=== PATIENT | female | born 1985 | race Caucasian/White ===

== ENCOUNTER → 2017-01-23 | Outpatient (CLI) | payer OTHER | LOC: OD 10:22 | PROVIDERS: ATTEND Nurse Practitioner | DX: Z32.02 Encounter for pregnancy test, result negative (principal) | CPT/HCPCS: 36415; 84702 ==

== ENCOUNTER → 2017-07-24 | Outpatient (CLI) | payer OTHER ==
[2017-07-24 07:56] LABS: ABSOLUTE BASOPHILS # (AUTO) 0.1 10^3/uL (0.0-0.2); ABSOLUTE EOSINOPHILS # (AUTO) 0.3 10^3/uL (0.0-0.6); ABSOLUTE LYMPHOCYTES (AUTO) 1.7 10^3/uL (0.5-4.7); ABSOLUTE MONOCYTES (AUTO) 0.5 10^3/uL (0.1-1.4); ABSOLUTE NEUT (AUTO) 4.9 10^3/uL (1.7-8.2); EOSINOPHILS % (AUTO) 4.1 % (0-6); HEMATOCRIT 38.4 % (36.0-47.0); HEMOGLOBIN 12.7 g/dL (12.0-15.5); HGB HCT DIFFERENCE -0.3; LYMPHOCYTES % (AUTO) 22.5 % (13-45); MEAN CORPUSCULAR HEMOGLOBIN 28.4 pg (27.0-33.4); MEAN CORPUSCULAR HGB CONC 33.2 g/dL (32.0-36.0); MEAN CORPUSCULAR VOLUME 86 fl (80-97); MONOCYTES % (AUTO) 6.3 % (3-13); RED BLOOD COUNT 4.48 10^6/uL (3.72-5.28); RED CELL DISTRIBUTION WIDTH 13.2 % (11.5-14.0); SEGMENTED NEUTROPHILS % (AUTO) 66.1 % (42-78); WHITE BLOOD COUNT 7.5 10^3/uL (4.0-10.5)
[2017-07-24 08:07] LABS: ALANINE AMINOTRANSFERASE 33 U/L (9-52); ALBUMIN 4.1 g/dL (3.5-5.0); ALKALINE PHOSPHATASE 96 U/L (38-126); ANION GAP 8 (5-19); ASPARTATE AMINO TRANSFERASE 24 U/L (14-36); BILIRUBIN,DIRECT 0.3 mg/dL (0.0-0.4); BILIRUBIN,TOTAL 0.3 mg/dL (0.2-1.3); BLOOD UREA NITROGEN 11 mg/dL (7-20); CALCIUM 9.7 mg/dL (8.4-10.2); CARBON DIOXIDE 28 mmol/L (22-30); CHLORIDE 105 mmol/L (98-107); CHOLESTEROL 257.08 mg/dL (0-200); CREATININE RESULT 0.58 mg/dL (0.52-1.25); Direct HDL 91 mg/dL (>40); GLUCOSE 96 mg/dL (75-110); POTASSIUM 4.6 mmol/L (3.6-5.0); SODIUM 140.6 mmol/L (137-145); TOTAL PROTEIN 7.1 g/dL (6.3-8.2); TRIGLYCERIDES 209 mg/dL (<150)
[2017-07-24 08:18] LABS: DIRECT LDL 149 mg/dL (<100)
[2017-07-24 08:24] LABS: VLDL CHOLESTEROL 41.8 mg/dL (10-31)
[2017-07-24 08:37] LABS: THYROID STIMULATING HORMONE 2.48 uIU/mL (0.47-4.68)
== END ==
LOC: OD 07:18
PROVIDERS: ATTEND Nurse Practitioner Psychiatric/Mental Health
DX: F33.0 Major depressive disorder, recurrent, mild (principal); Z79.899 Other long term (current) drug therapy
CPT/HCPCS: 36415; 80053; 80061; 84439; 84443; 85025

== ENCOUNTER 2017-10-30 12:25 | Emergency (ER) | payer OTHER ==
--- NOTE | 2017-10-30 13:03 | ER Document Report ---
ED Medical Screen (RME) - General TRAVEL OUTSIDE OF THE U.S. IN LAST 30 DAYS: No <DHARMESH OLIVIA - Last Filed: 10/30/17 13:02> <HAMZAH POWELL - Last Filed: 10/30/17 15:33> - General Chief Complaint: Lower Abdominal Pain Stated Complaint: URINE CONCERN Time Seen by Provider: 10/30/17 12:57 Notes: 32-year-old female with acute onset this morning of right pelvic adnexal pain. Was seen at an urgent care where she had a negative urine and negative hCG. Brief exam shows abdomen obese, soft, point tender in the right adnexal region. No CVA percussion tenderness. Abdomen is soft with active bowel sounds. I have greeted and performed a rapid initial assessment of this patient. A comprehensive ED assessment and evaluation of the patient, analysis of test results and completion of the medical decision making process will be conducted by additional ED providers. (DHARMESH OLIVIA) - Related Data Allergies/Adverse Reactions: No Known Allergies Allergy (Verified 10/30/17 12:26) Past Medical History - Social History Frequency of alcohol use: Occasional Drug Abuse: None Endocrine Medical History: Denies: Hx Hyperthyroidism, Hx Hypothyroidism Renal/ Medical History: Denies: Hx Peritoneal Dialysis Psychiatric Medical History: Reports: Hx Depression Denies: Hx Bipolar Disorder, Hx Post Traumatic Stress Disorder, Hx Schizophrenia <DHARMESH OLIVIA - Last Filed: 10/30/17 13:02> - Vital signs Vitals: Temp Pulse Resp BP Pulse Ox 98.7 F 93 16 133/75 H 96 10/30/17 12:31 10/30/17 12:31 10/30/17 12:31 10/30/17 12:31 10/30/17 12:31 Course - Laboratory Result Diagrams: 10/30/17 13:28 <HAMZAH POWELL - Last Filed: 10/30/17 15:33> - Vital Signs Vital signs: Temp Pulse Resp BP Pulse Ox 98.5 F 93 16 133/78 H 95 10/30/17 15:27 10/30/17 15:27 10/30/17 15:27 10/30/17 15:27 10/30/17 15:27 - Laboratory Laboratory results interpreted by me: 10/30/17 13:28 RDW 14.3 H Doctor's Discharge <DHARMESH OLIVIA - Last Filed: 10/30/17 13:02> <HAMZAH POWELL - Last Filed: 10/30/17 15:33> - Discharge Clinical Impression: Abdominal pain Qualifiers: Abdominal location: periumbilical Qualified Code(s): R10.33 - Periumbilical pain Condition: Good Disposition: HOME, SELF-CARE Instructions: Abdominal Pain ([facility]) Additional Instructions: See your primary care doctor in 12-24 hours Prescriptions: Ondansetron [Zofran Odt 4 mg Tablet] 1 - 2 tab PO Q4H PRN #15 tab.rapdis PRN Reason: For Nausea/Vomiting Forms: Return to School, Return to Work
[2017-10-30 14:01] LABS: APPEARANCE,URINE CLEAR; BILIRUBIN,URINE NEGATIVE (NEGATIVE); COLOR,URINE STRAW; GLUCOSE, URINE NEGATIVE (NEGATIVE); KETONES,URINE NEGATIVE (NEGATIVE); LEUKOCYTE ESTERASE,URINE NEGATIVE (NEGATIVE); NITRITE,URINE NEGATIVE (NEGATIVE); PROTEIN,URINE NEGATIVE (NEGATIVE); URINE SPECIFIC GRAVITY 1.004; UROBILINOGEN,URINE NEGATIVE mg/dL (<2.0)
[2017-10-30 14:24] LABS: ABSOLUTE BASOPHILS # (AUTO) 0.1 10^3/uL (0.0-0.2); ABSOLUTE EOSINOPHILS # (AUTO) 0.2 10^3/uL (0.0-0.6); ABSOLUTE LYMPHOCYTES (AUTO) 2.2 10^3/uL (0.5-4.7); ABSOLUTE MONOCYTES (AUTO) 0.6 10^3/uL (0.1-1.4); ABSOLUTE NEUT (AUTO) 7.3 10^3/uL (1.7-8.2); BASOPHILS % (AUTO) 0.7 % (0-2); EOSINOPHILS % (AUTO) 1.9 % (0-6); HEMATOCRIT 38.4 % (36.0-47.0); LYMPHOCYTES % (AUTO) 21.5 % (13-45); MEAN CORPUSCULAR HEMOGLOBIN 28.4 pg (27.0-33.4); MEAN CORPUSCULAR HGB CONC 33.9 g/dL (32.0-36.0); MEAN CORPUSCULAR VOLUME 84 fl (80-97); MONOCYTES % (AUTO) 5.8 % (3-13); PLATELET COUNT 268 10^3/uL (150-450); RED BLOOD COUNT 4.58 10^6/uL (3.72-5.28); RED CELL DISTRIBUTION WIDTH 14.3 % (11.5-14.0); SEGMENTED NEUTROPHILS % (AUTO) 70.1 % (42-78); TOTAL CELLS COUNTED % (AUTO) 100 %; WHITE BLOOD COUNT 10.4 10^3/uL (4.0-10.5)
--- NOTE | 2017-10-30 14:36 | RADIOLOGY REPORT (SQ) ---
EXAM DESCRIPTION: U/S NON-OB PELVIS TV W/O DOP COMPLETED DATE/TIME: 10/30/2017 2:25 pm REASON FOR STUDY: Acute onset, R pelvic/adnexal pain COMPARISON: None. TECHNIQUE: Dynamic and static grayscale images acquired of the pelvis via transvaginal approach and recorded on PACS. Additional selected color Doppler and spectral images recorded. LIMITATIONS: None. FINDINGS: UTERUS: Contour normal. No mass. Uterus is 7 x 4 x 4 cm in size ENDOMETRIAL STRIPE: No focal or generalized thickening. No masses. Endometrium 4 mm in thickness. CERVIX: No nabothian cysts. RIGHT OVARY: No abnormal masses. Right ovary 3.5 x 2.6 x 1.7 cm in size RIGHT OVARY DOPPLER: Normal arterial vascular flow without evidence for torsion. LEFT OVARY: No abnormal masses. Left ovary 3.5 x 2.1 x 1.1 cm in size LEFT OVARY DOPPLER: Normal arterial vascular flow without evidence for torsion. FREE FLUID: Trace cul-de-sac fluid OTHER: No other significant finding. IMPRESSION: Trace cul-de-sac fluid. Otherwise unremarkable study. TECHNICAL DOCUMENTATION: JOB ID: [id number]- All Rights Reserved Reading location - IP/workstation name: [email or web address]
--- NOTE | 2017-10-30 15:09 | ER Document Report ---
ED General - General Chief Complaint: Lower Abdominal Pain Stated Complaint: URINE CONCERN Time Seen by Provider: 10/30/17 12:57 TRAVEL OUTSIDE OF THE [place] IN LAST 30 DAYS: No - HPI Notes: Note patient was initially seen by physician in triage ordered labs and ultrasound. This is a 32-year-old female who describes midline periumbilical supra pubic pain over the last day, gradual onset. Nonradiating. Nausea but no vomiting. Achy, crampy. No fever. No other modifying factors, no other associated symptoms, no other provocative or palliative factors. - Related Data Allergies/Adverse Reactions: No Known Allergies Allergy (Verified 10/30/17 12:26) Past Medical History - Social History Smoking Status: Never Smoker Frequency of alcohol use: Occasional Drug Abuse: None Family History: Reviewed & Not Pertinent Patient has suicidal ideation: No Patient has homicidal ideation: No - Medical History Medical History: Other - Denies except for history of depression Endocrine Medical History: Denies: Hx Hyperthyroidism, Hx Hypothyroidism Renal/ Medical History: Denies: Hx Peritoneal Dialysis Psychiatric Medical History: Reports: Hx Depression Denies: Hx Bipolar Disorder, Hx Post Traumatic Stress Disorder, Hx Schizophrenia Review of Systems - Review of Systems Notes: Review of systems as in history of present illness otherwise negative Physical Exam - Vital signs Vitals: Temp Pulse Resp BP Pulse Ox 98.7 F 93 16 133/75 H 96 10/30/17 12:31 10/30/17 12:31 10/30/17 12:31 10/30/17 12:31 10/30/17 12:31 - Notes Notes: General: Well developed . HEENT: Normocephalic, atraumatic. Pupils equal round reactive to light. No JVD. Chest: No trauma. Respiratory: Good air exchange, normal excursion. Cardiac: Regular rhythm. No murmurs or gallops. Abdomen: Soft, benign. Nondistended, distracted examination grossly nontender. No guarding, rigidity or rebound Back: No asymmetry or gross abnormality. Motor: Grossly normal power and tone. Neurologic: Alert, nonfocal. Cranial nerves II-12 are intact. Sensation intact. Vascular: Well perfused. Normal peripheral pulses. Skin: No petechiae or purpura. Course - Vital Signs Vital signs: Temp Pulse Resp BP Pulse Ox 98.7 F 93 16 133/75 H 96 10/30/17 12:31 10/30/17 12:31 10/30/17 12:31 10/30/17 12:31 10/30/17 12:31 10/30/17 15:17 Well-appearing female with a benign abdominal examination. She received antibiotics prior to my evaluation. She states she feels much better pain is improved. Review of her labs show unremarkable CBC, negative urinalysis and urine test. Ultrasound was obtained is also unremarkable. On serial examination she has a benign abdomen. My suspicion for appendicitis is low, especially in the absence of fever, leukocytosis, right lower quadrant pain and and considering her significant improvement in pain. She discharged home to follow-up in 1224 hrs. for recheck, return if worsening. - Laboratory Result Diagrams: 10/30/17 13:28 Laboratory results interpreted by me: 10/30/17 13:28 RDW 14.3 H Discharge - Discharge Clinical Impression: Abdominal pain Qualifiers: Abdominal location: periumbilical Qualified Code(s): R10.33 - Periumbilical pain Condition: Good Disposition: HOME, SELF-CARE Instructions: Abdominal Pain ([facility]) Additional Instructions: See your primary care doctor in 12-24 hours Prescriptions: Ondansetron [Zofran Odt 4 mg Tablet] 1 - 2 tab PO Q4H PRN #15 tab.rapdis PRN Reason: For Nausea/Vomiting
[2017-10-30 15:31] VITALS: BP 133/78
== END 2017-10-30 15:30 | disposition home or self-care (01) ==
LOC: ER 12:25
DX: R10.33 Periumbilical pain (principal); R11.0 Nausea
CPT/HCPCS: 36415; 76830; 81001; 81025; 85025; 99284

== ENCOUNTER → 2017-12-14 | Outpatient (CLI) | payer OTHER ==
--- NOTE | 2017-12-14 10:07 | RADIOLOGY REPORT (SQ) ---
EXAM DESCRIPTION: CT CHEST WITH; CT ABD/PELVIS WITH IV ONLY COMPLETED DATE/TIME: 12/14/2017 9:25 am REASON FOR STUDY: BREAST CA (C50.812) C50.812 MALIGNANT NEOPLASM OF OVRLP SITES OF LEFT FEMALE [place] COMPARISON: Pelvic ultrasound 10/30/2017 CONTRAST TYPE AND DOSE: contrast/concentration: Isovue 370.00 mg/ml; Total Contrast Delivered: 100.0 ml; Total Saline Delivered: 72.0 ml RENAL FUNCTION: Creatinine 0.6 TECHNIQUE: CT scan of the chest performed using helical scanning technique with dynamic intravenous contrast injection. Images reviewed with lung, soft tissue and bone windows. Reconstructed coronal a nd sagittal MPR images reviewed. All images stored on PACS. CT scan of the abdomen and pelvis performed with intravenous and without oral contrastusing helical s lindsay technique with dynamic intravenous contrast injection. Images reviewed with lung, soft tissu e and bone windows. Reconstructed coronal and sagittal MPR images reviewed. Delayed images for eval uation of the urinary system also acquired and evaluated. All images stored on PACS. All CT scanners at this facility use dose modulation, iterative reconstruction, and/or weight based d osing when appropriate to reduce radiation dose to as low as reasonably achievable (ALARA). [facility]: Dose Right [facility]: CareDose [facility]: Dose Right [facility]: Teradose 4D [facility]: [employer] RADIATION DOSE: CT Rad equipment meets quality standard of care and radiation dose reduction techniq ues were employed. CTDIvol: 10.4 - 16.5 mGy. DLP: 3169 mGy-cm. . LIMITATIONS: None. FINDINGS: CHEST: LUNGS AND PLEURA: No opacities, nodules, masses. No pneumothorax. No effusions. HILAR AND MEDIASTINAL STRUCTURES: No identified masses or abnormal nodes. HEART AND VASCULAR STRUCTURES: No aneurysm or dissection. No central pulmonary emboli. No pericardi al effusion. HARDWARE: None. THYROID AND OTHER SOFT TISSUES: Thyroid unremarkable. 3 cm left breast mass upper outer quadrant, wi th adjacent biopsy clip. Left axilla 3 x 1 cm lymph node image 18. BONES: No significant finding. OTHER: No other significant finding. ABDOMEN AND PELVIS: LIVER: Normal size. No masses. No dilated ducts. Fatty liver with focal sparing at the gallbladder fossa SPLEEN: Normal size. No focal lesions. PANCREAS: No masses. No significant calcifications. No adjacent inflammation or peripancreatic fluid collections. Pancreatic duct not dilated. GALLBLADDER: No identified stones by CT criteria. No inflammatory changes to suggest cholecystitis. ADRENAL GLANDS: No significant masses or asymmetry. RIGHT KIDNEY AND URETER: No solid masses. No significant calcification. No hydronephrosis or hydroure ter. LEFT KIDNEY AND URETER: No solid masses. No significant calcification. No hydronephrosis or hydrouret er. AORTA AND VESSELS: No aneurysm. No dissection. Renal arteries, SMA, celiac without stenosis. RETROPERITONEUM: No retroperitoneal adenopathy, hemorrhage or masses. BOWEL AND PERITONEAL CAVITY: No masses or inflammatory changes. No free fluid or peritoneal masses. APPENDIX: Normal. ABDOMINAL WALL: No masses. No hernias. PELVIS: No mass or free fluid. Normal bladder. BONES: No significant or acute findings. OTHER: No other significant finding. IMPRESSION: 3 cm left upper outer quadrant breast mass with adjacent biopsy clip. Enlarged left axilla lymph node. Otherwise unremarkable CT of the chest abdomen and pelvis TECHNICAL DOCUMENTATION: JOB ID: [id number] Quality ID # 436: Final reports with documentation of one or more dose reduction techniques (e.g., Au tomated exposure control, adjustment of the mA and/or kV according to patient size, use of iterative reconstruction technique) 2010 [employer]- All Rights Reserved Reading location - IP/workstation name: [email or web address]
--- NOTE | 2017-12-14 12:37 | RADIOLOGY REPORT (SQ) ---
EXAM DESCRIPTION: NM WHOLE BODY BONE SCAN COMPLETED DATE/TIME: 12/14/2017 12:08 pm REASON FOR STUDY: BREAST CA (C50.812) C50.812 MALIGNANT NEOPLASM OF OVRLP SITES OF LEFT FEMALE [place] COMPARISON: CT chest abdomen pelvis 12/14/2016 RADIONUCLIDE AND DOSE: 20.9 millicuries Tc99m MDP. The route of agent administration: Intravenous. ADDITIONAL DRUGS AND DOSES: None. TECHNIQUE: Routine delayed images at 3 hours post radionuclide injection acquired of the bony skelet on including anterior and posterior whole-body projections and additional focused images as needed. LIMITATIONS: None. FINDINGS: BONES: Normal visualization without areas of photopenia or increased bony uptake of radiop harmaceutical. KIDNEYS: Symmetric excretion without obstruction. OTHER: No other significant finding. IMPRESSION: NORMAL BONE SCAN. COMMENT: Quality measure 147: Current bone scan is compared with any available plain radiographs, p rior bone scans, and CT/MRI. TECHNICAL DOCUMENTATION: JOB ID: [id number] [employer]- All Rights Reserved Reading location - IP/workstation name: [email or web address]
== END ==
LOC: RAD 08:20
PROVIDERS: ATTEND Internal Medicine Hematology & Oncology
DX: C50.812 Malignant neoplasm of overlapping sites of left female breast (principal)
CPT/HCPCS: 78306; 71260; 74177; A9561; Q9969

== ENCOUNTER 2017-12-27 08:43 | Day surgery (SDC) | payer OTHER ==
[~2017-12-27 08:43] MED LIST: ACETAMINOPHEN 325 MG TABLET PO PRN; CEFAZOLIN 2 GM/D5W RTU 2 GM/50 ML RTUPB IV PRN
[2017-12-27] MEDS ORDERED: BUPIVACAINE HCL 0.25 % INJ/PF (2.5 MG/1 ML) 30 ML VIAL ONE (09:14)
[2017-12-27] MEDS ORDERED: LIDOCAINE 1% INJ-PF (10 MG/ML) 30 ML SDV ONE (11:12)
[2017-12-27] MEDS ORDERED: FENTANYL CITRATE INJ/PF 100 MCG/2 ML AMPUL ONE ×2 (11:18→12:49)
[2017-12-27] MEDS ORDERED: LIDOCAINE 2% INJ-PF (20 MG/ML) 10 ML AMPUL ONE (11:18)
[2017-12-27] MEDS ORDERED: PROPOFOL INJ 200 MG/20 ML VIAL IV ONE (11:19)
[2017-12-27] MEDS ORDERED: MIDAZOLAM 2 MG/2 ML INJ ONE (11:19)
[2017-12-27] MEDS ORDERED: MORPHINE SULFATE 10 MG/ML INJ IV PRN (12:15)
[2017-12-27] MEDS ORDERED: PROMETHAZINE HCL INJ 25 MG/1 ML VIAL IV PRN ×2 (12:15)
[2017-12-27] MEDS ORDERED: MEPERIDINE HCL/PF INJ 25 MG/1 ML DISP.SYRIN IV PRN (12:15)
[2017-12-27] MEDS ORDERED: OXYCODONE-ACETAMINOPHEN 5-325 MG TABLET PO PRN ×2 (12:15)
[2017-12-27] MEDS ORDERED: FENTANYL CITRATE INJ/PF 100 MCG/2 ML AMPUL IV PRN ×3 (12:15)
[2017-12-27] MEDS ORDERED: DIPHENHYDRAMINE HCL 50 MG/ML VIAL IV PRN (12:15)
[2017-12-27] MEDS ORDERED: ONDANSETRON HCL INJ/PF 4 MG/2 ML SDV IV PRN (12:15)
--- NOTE | 2017-12-27 12:51 | Discharge Summary ---
Discharge Summary (SDC) - Discharge Final Diagnosis: breast cancer Date of Surgery: 12/27/17 Discharge Date: 12/27/17 Condition: Stable Treatment or Instructions: ok to shower on staurday. no tub-baths or swimming x2 weeks Referrals: KATHERIN CALDERON NP-C [Primary Care Provider] - Respiratory Treatments at Home: Deep Breathing/Coughing, Incentive Spirometer Discharge Activity: Slowly Increase Activity Home Care Assistance: None Needed Report the Following to Your Physician Immediately: Shortness of Breath, Nausea , Vomiting, Increase in Pain, Fever over 101 Degrees, Redness, Swelling, Warmth
--- NOTE | 2017-12-27 12:57 | Operative Report ---
Nonrecallable Operative Report DATE OF SURGERY: 12/27/17 PREOPERATIVE DIAGNOSIS: breast cancer POSTOPERATIVE DIAGNOSIS: same as above. OPERATION: 1. Ultrasound-guided central venous puncture. 2. Right internal jugular vein Mediport placement. SURGEON: MARLENE PENG ANESTHESIA: LMAC TISSUE REMOVED OR ALTERED: None COMPLICATIONS: None apparent ESTIMATED BLOOD LOSS: Minimal PROCEDURE: Drains/implants: Right internal jugular vein Mediport placement. Procedure in detail: After informed consent was obtained, the patient was laid in the Trendelenburg position in the operating room. The area of the right neck and chest were prepped and draped in the normal sterile fashion. An ultrasound was used to identify the right internal jugular vein. It was compressible with normal flow. Under direct ultrasonic guidance, the vein was accessed using the supplied needle. Dark venous, nonpulsatile blood was returned in the syringe. The wire was inserted into the vein easily. The wire was confirmed to be within the lumen of the vein using the ultrasound device and fluoroscopy. Next, a pocket was created for the Mediport hub using a 15 blade scalpel. The catheter was tunneled from the hub insertion site to the needle insertion site. Next, the dilator and breakaway sheath were inserted over the wire. This was done under direct fluoroscopic guidance. The dilator and wire were removed, leaving the sheath within the SVC. The catheter was inserted, and the sheath was cracked and pulled away. This left the catheter within the SVC. The catheter was pulled back to an appropriate level. The catheter was trimmed to length. The Mediport hub was attached. The hub was buried in the pocket and sutured to the chest wall using 3-0 Vicryl suture. The Mediport was then accessed and flushed with heparinized saline. The overlying skin was closed using 4-0 Vicryl repeat suture in subcuticular fashion. Dressings were fashioned, and the procedure was concluded. All sponge , instrument, and needle counts were correct 2. Condition: Stable.
[2017-12-27 14:25] VITALS: BP 108/69
--- NOTE | 2017-12-27 16:40 | RADIOLOGY REPORT (SQ) ---
EXAM DESCRIPTION: FLUORO/CV PLACEMENT COMPLETED DATE/TIME: 12/27/2017 1:30 pm REASON FOR STUDY: PORTACATH PLCMT RT SIDE ASST WITH FLUORO IN OR C50.812 MALIGNANT NEOPLASM OF OVRL P SITES OF LEFT FEMALE [place] COMPARISON: None. FLUOROSCOPY TIME: 0.8 minutes 1 digital radiographic image saved to PACS. TECHNIQUE: Intra-operative images acquired during surgical procedure to evaluate progress. NUMBER OF IMAGES: 1 digital radiographic image LIMITATIONS: None. FINDINGS: Intra procedural imaging and fluoro during placement of a right-sided permanent central li ne with the tip in the superior vena cava. Please see the operative report for further details IMPRESSION: Intra procedural imaging and fluoro COMMENT: Quality ID 145: Final reports for procedures using fluoroscopy that document radiation exp osure indices, or exposure time and number of fluorographic images (if radiation exposure indices are not available) Please consult full operative report of the attending physician for description of the procedure. TECHNICAL DOCUMENTATION: JOB ID: [id number] [employer]- All Rights Reserved Reading location - IP/workstation name: [email or web address]
== END 2017-12-27 14:18 | disposition home or self-care (01) ==
LOC: OROUT 08:43
PROVIDERS: ATTEND Surgery
DX: Z01.818 Encounter for other preprocedural examination (principal); C50.912 Malignant neoplasm of unspecified site of left female breast; F32.9 Major depressive disorder, single episode, unspecified; Z79.899 Other long term (current) drug therapy
CPT/HCPCS: 36561; 81025; 77001; C1788; J2250; J3010; J3490 ×2; J2704; J0690; J1642; 532

== ENCOUNTER 2018-01-03 09:50 | Outpatient (CLI) | payer OTHER ==
[~2018-01-03 09:50] MED LIST changes: -ACETAMINOPHEN 325 MG TABLET PO PRN; -CEFAZOLIN 2 GM/D5W RTU 2 GM/50 ML RTUPB IV PRN; +CYCLOPHOSPHAMIDE IV PRN; +DEXAMETHASONE SOD PHOSPHATE 20 MG in DEXTROSE 5%-WATER 50 ML IV PRN; +DIPHENHYDRAMINE HCL 50 MG/ML VIAL IV PRN; +DOCETAXEL IV PRN; +FAMOTIDINE/PF 20 MG in NORMAL SALINE 50 ML IV PRN; +NORMAL SALINE 500 ML IV PRN; +NORMAL SALINE IV PRN; +PALONOSETRON 0.25 MG/5 ML SDV IV PRN
[2018-01-03 11:04] VITALS: BP 121/65
== END 2018-01-03 13:16 | disposition home or self-care (01) ==
LOC: II 09:50 → 5TH 09:53 → II 13:16
PROVIDERS: ATTEND Internal Medicine Hematology & Oncology
DX: Z51.11 Encounter for antineoplastic chemotherapy (principal); C50.812 Malignant neoplasm of overlapping sites of left female breast
CPT/HCPCS: 96413; 96415; 96367; 96375; J9070; J1200; J7050; S0028; J1100; J2469; J9171

== ENCOUNTER 2018-01-04 12:48 | Outpatient (CLI) | payer OTHER ==
[~2018-01-04 12:48] MED LIST changes: -CYCLOPHOSPHAMIDE IV PRN; -DEXAMETHASONE SOD PHOSPHATE 20 MG in DEXTROSE 5%-WATER 50 ML IV PRN; -DIPHENHYDRAMINE HCL 50 MG/ML VIAL IV PRN; -DOCETAXEL IV PRN; -FAMOTIDINE/PF 20 MG in NORMAL SALINE 50 ML IV PRN; -NORMAL SALINE 500 ML IV PRN; -NORMAL SALINE IV PRN; -PALONOSETRON 0.25 MG/5 ML SDV IV PRN; +PEGFILGRASTIM INJ 6 MG/0.6 ML DISP.SYRIN SUBCUT PRN
[2018-01-04 13:24] VITALS: BP 121/63
== END 2018-01-04 13:44 | disposition home or self-care (01) ==
LOC: II 12:48 → 5TH 12:52 → II 13:44
PROVIDERS: ATTEND Internal Medicine Hematology & Oncology
PROC: 3E013GC Introduction of Other Therapeutic Substance into Subcutaneous Tissue, Percutaneous Approach (ICD-10-PCS; principal; 2018-01-04)
DX: Z76.89 Persons encountering health services in other specified circumstances (principal); C50.812 Malignant neoplasm of overlapping sites of left female breast; D70.9 Neutropenia, unspecified
CPT/HCPCS: 96372; J2505

== ENCOUNTER → 2018-01-14 | Outpatient (CLI) | payer OTHER ==
--- NOTE | 2018-01-14 16:18 | XCELERA REPORT ---
[address] [address] Upper Extremity Venous Evaluation Name: RUSYT SAUCEDA Age: 32 yrs Gender: Female : 1985 Patient Status: Outpatient Patient Location: Study Date: 01/14/2018 11:19 AM Procedure: Unilateral duplex scan of the right upper extremity veins was performed, including responses to compression and other maneuvers. Reason For Study: RT CERVICALGIA Ordering Physician: MEME NELSON Performed By: Kevin Rich Right Side Venous Evaluation Abnormal vessel filling with echogenic material , no compression or Colour flow in the Internal Jugular vein. Otherwise normal Right upper extremity veins down to the forearm veins. Interpretation Summary Fresh DVT in the right Internal Jugular vein. : MEME NELSON > Meme Nelson
== END ==
LOC: SP 10:28
PROVIDERS: ATTEND Surgery
DX: M54.2 Cervicalgia (principal)
CPT/HCPCS: 93971

== ENCOUNTER 2018-01-17 21:18 | Emergency (ER) | payer OTHER ==
--- NOTE | 2018-01-17 21:44 | RADIOLOGY REPORT (SQ) ---
EXAM DESCRIPTION: CT HEAD WITHOUT COMPLETED DATE/TIME: 01/17/2018 9:35 pm REASON FOR STUDY: severe headache COMPARISON: None. TECHNIQUE: Axial images acquired through the brain without intravenous contrast. Images reviewed wi th bone, brain and subdural windows. Additional sagittal and coronal reconstructions were generated. Images stored on PACS. All CT scanners at this facility use dose modulation, iterative reconstruction, and/or weight based d osing when appropriate to reduce radiation dose to as low as reasonably achievable (ALARA). [facility]: Dose Right [facility]: CareDose [facility]: Dose Right [facility]: Teradose 4D [facility]: [employer] RADIATION DOSE: CT Rad equipment meets quality standard of care and radiation dose reduction techniq ues were employed. CTDIvol: 53.2 mGy. DLP: 911 mGy-cm. mGy. LIMITATIONS: None. FINDINGS: VENTRICLES: Normal size and contour. CEREBRUM: No masses. No hemorrhage. No midline shift. No evidence for acute infarction. Normal gra y/white matter differentiation. No areas of low density in the white matter. CEREBELLUM: No masses. No hemorrhage. No alteration of density. No evidence for acute infarction. EXTRAAXIAL SPACES: No fluid collections. No masses. ORBITS AND GLOBE: No intra- or extraconal masses. Normal contour of globe without masses. CALVARIUM: No fracture. PARANASAL SINUSES: There is marked mucoperiosteal thickening in the right maxillary sinus. SOFT TISSUES: No mass or hematoma. OTHER: No other significant finding. IMPRESSION: Right maxillary sinus disease with no acute intracranial imaging findings. EVIDENCE OF ACUTE STROKE: NO. COMMENT: Quality ID # 436: Final reports with documentation of one or more dose reduction techniques (e.g., Automated exposure control, adjustment of the mA and/or kV according to patient size, use of iterative reconstruction technique) TECHNICAL DOCUMENTATION: JOB ID: [id number] [employer]- All Rights Reserved Reading location - IP/workstation name: [email or web address]
--- NOTE | 2018-01-17 21:44 | ER Document Report ---
ED General - General Chief Complaint: Headache Stated Complaint: NECK PAIN Time Seen by Provider: 01/17/18 21:42 Mode of Arrival: Ambulatory Information source: Patient TRAVEL OUTSIDE OF THE [place] IN LAST 30 DAYS: No - HPI Onset: Yesterday Onset/Duration: Gradual Quality of pain: Achy, Dull Severity: Moderate Associated symptoms: denies: Chest pain, Hurts to breath, Shortness of breath Exacerbated by: Movement Relieved by: Remaining still Similar symptoms previously: No Recently seen / treated by doctor: Yes - 3 DAYS AGO (HEME-ONC) - Related Data Allergies/Adverse Reactions: No Known Allergies Allergy (Verified 10/30/17 12:26) Past Medical History - General Information source: Patient - Social History Smoking Status: Unknown if Ever Smoked Cigarette use (# per day): No Chew tobacco use (# tins/day): No Frequency of alcohol use: None Drug Abuse: None Lives with: Family Family History: Reviewed & Not Pertinent Patient has suicidal ideation: No Patient has homicidal ideation: No - Past Medical History Cardiac Medical History: Reports: None Denies: Hx Coronary Artery Disease, Hx Heart Attack, Hx Hypertension Pulmonary Medical History: Reports: None Denies: Hx Asthma, Hx Bronchitis, Hx COPD, Hx Pneumonia EENT Medical History: Reports: None Neurological Medical History: Reports: None. Denies: Hx Cerebrovascular Accident, Hx Seizures Endocrine Medical History: Reports: None. Denies: Hx Hyperthyroidism, Hx Hypothyroidism Renal/ Medical History: Reports: None. Denies: Hx Peritoneal Dialysis Malignancy Medical History: Reports: Hx Breast Cancer - PRESENTLY ON CHEMOTx GI Medical History: Reports: None Musculoskeltal Medical History: Reports None, Denies Hx Arthritis Psychiatric Medical History: Reports: Hx Depression Denies: Hx Bipolar Disorder, Hx Post Traumatic Stress Disorder, Hx Schizophrenia Surgical Hx: Negative - Immunizations Hx Diphtheria, Pertussis, Tetanus Vaccination: Yes Review of Systems - Review of Systems Constitutional: No symptoms reported. denies: Chills, Fever EENT: No symptoms reported Cardiovascular: No symptoms reported Respiratory: No symptoms reported Gastrointestinal: No symptoms reported Genitourinary: No symptoms reported Female Genitourinary: No symptoms reported Musculoskeletal: See HPI, Neck pain Skin: No symptoms reported Neurological/Psychological: See HPI Physical Exam - Vital signs Vitals: Temp Pulse Resp BP Pulse Ox 98.2 F 92 16 140/74 H 100 01/17/18 21:26 06/21/18 21:26 01/17/18 21:26 01/17/18 21:26 01/17/18 21:26 Interpretation: Hypertensive. No: Tachycardic, Tachypneic, Febrile - General General appearance: Appears well, Alert In distress: None - HEENT Head: Normocephalic Eyes: Normal Conjunctiva: Normal Ears: Normal External canal: Normal Tympanic membrane: Bulging - SLIGHT, ON RIGHT. No: Hemotympanum Nasal: Normal Mouth/Lips: Normal Mucous membranes: Normal Neck: Normal, Other - MILDLY TENDER R. SUPRA-CLAVICULAR, NO MASS - Respiratory Respiratory status: No respiratory distress Breath sounds: Normal Chest palpation: Other - RECENTLY PLACED PORT, APPEARS TO BE HEALING SATISFACTORILY - Cardiovascular Rhythm: Regular - Abdominal Inspection: Normal Distension: No distension - Back Back: Normal - Extremities General upper extremity: Normal inspection General lower extremity: Normal inspection - Neurological Neuro grossly intact: Yes Cognition: Normal Orientation: AAOx4 - Psychological Associated symptoms: Normal affect, Normal mood - Skin Skin Temperature: Warm Skin Moisture: Dry Skin Color: Normal Skin Turgor: Elastic Course - Vital Signs Vital signs: Temp Pulse Resp BP Pulse Ox 98.2 F 92 14 112/68 98 01/18/18 00:00 01/17/18 21:26 01/18/18 00:00 01/18/18 00:00 01/18/18 00:00 - Laboratory Result Diagrams: 01/17/18 22:10 01/17/18 22:10 Laboratory results interpreted by me: 01/17/18 01/17/18 22:10 22:10 WBC 10.7 H RDW 14.5 H Absolute Neutrophils 8.3 H Glucose 120 H AST 62 H ALT 81 H - Consults DR. CHERY Time consulted: 21:50 Consulted provider: follow-up in office Discharge - Discharge Clinical Impression: Headache Qualifiers: Headache type: unspecified Headache chronicity pattern: acute headache Intractability: not intractable Qualified Code(s): R51 - Headache Thrombosis of internal jugular vein Qualifiers: Laterality: right Qualified Code(s): I82.C11 - Acute embolism and thrombosis of right internal jugular vein Condition: Stable Disposition: HOME, SELF-CARE Instructions: Antinausea Medication ([facility]), Headache ([facility]), Oral Narcotic Medication ([facility]) Additional Instructions: CONTINUE USUAL MEDICATIONS. CONSIDER TAKING SUDAFED OR OTHER ANTIHISTAMINE/DECONGESTANT TO HELP EQUALIZE PRESSURE IN EAR. FOLLOW UP WITH ONCOLOGY TOMORROW (SUNDAY), CALL OFFICE AFTER 8:30 AM FOR APPT. TIME. Referrals: MICHELET HAN MD [ACTIVE STAFF] - Follow up tomorrow
[2018-01-17] MEDS ORDERED: FENTANYL CITRATE INJ/PF 100 MCG/2 ML AMPUL IV ONE (22:38)
[2018-01-17] MEDS ORDERED: ONDANSETRON HCL INJ/PF 4 MG/2 ML SDV IV ONE (23:29)
[2018-01-17] MEDS ORDERED: HYDROCODONE/ACETAMINOPHEN 5-325 MG (6 TAB/ER DISP) PO PRN (23:29)
[2018-01-17] MEDS ORDERED: ONDANSETRON ODT 4 MG TAB (6 TAB/ER DISP) PO PRN (23:29)
[2018-01-17 23:35] LABS: ABSOLUTE EOSINOPHILS # (AUTO) 0.1 10^3/uL (0.0-0.6); ABSOLUTE LYMPHOCYTES (AUTO) 1.9 10^3/uL (0.5-4.7); ABSOLUTE MONOCYTES (AUTO) 0.5 10^3/uL (0.1-1.4); ABSOLUTE NEUT (AUTO) 8.3 10^3/uL (1.7-8.2); BASOPHILS % (AUTO) 0.4 % (0-2); EOSINOPHILS % (AUTO) 0.5 % (0-6); HEMATOCRIT 36.1 % (36.0-47.0); HEMOGLOBIN 12.1 g/dL (12.0-15.5); LYMPHOCYTES % (AUTO) 17.2 % (13-45); MEAN CORPUSCULAR HEMOGLOBIN 27.8 pg (27.0-33.4); MEAN CORPUSCULAR HGB CONC 33.5 g/dL (32.0-36.0); MEAN CORPUSCULAR VOLUME 83 fl (80-97); MONOCYTES % (AUTO) 4.2 % (3-13); PLATELET COUNT 164 10^3/uL (150-450); RED BLOOD COUNT 4.36 10^6/uL (3.72-5.28); RED CELL DISTRIBUTION WIDTH 14.5 % (11.5-14.0); SEGMENTED NEUTROPHILS % (AUTO) 77.7 % (42-78); TOTAL CELLS COUNTED % (AUTO) 100 %; WHITE BLOOD COUNT 10.7 10^3/uL (4.0-10.5)
[2018-01-17 23:39] LABS: ALANINE AMINOTRANSFERASE 81 U/L (9-52); ALBUMIN 4.4 g/dL (3.5-5.0); ALKALINE PHOSPHATASE 117 U/L (38-126); ANION GAP 11 (5-19); ASPARTATE AMINO TRANSFERASE 62 U/L (14-36); BILIRUBIN,DIRECT 0.3 mg/dL (0.0-0.4); BILIRUBIN,TOTAL 0.3 mg/dL (0.2-1.3); BLOOD UREA NITROGEN 15 mg/dL (7-20); CALCIUM 9.7 mg/dL (8.4-10.2); CARBON DIOXIDE 27 mmol/L (22-30); CHLORIDE 103 mmol/L (98-107); GLUCOSE 120 mg/dL (75-110); POTASSIUM 4.2 mmol/L (3.6-5.0); SODIUM 141.4 mmol/L (137-145); TOTAL PROTEIN 7.4 g/dL (6.3-8.2)
[2018-01-17 23:53] VITALS: BP 112/68
== END 2018-01-18 00:24 | disposition home or self-care (01) ==
LOC: ER 21:18
DX: I82.C11 Acute embolism and thrombosis of right internal jugular vein (principal); R51 Headache; M54.2 Cervicalgia
CPT/HCPCS: 99284; 96374; 36415; 85025; 80053; 70450; J3010

== ENCOUNTER 2018-01-24 09:12 | Outpatient (CLI) | payer OTHER ==
[~2018-01-24 09:12] MED LIST changes: +CYCLOPHOSPHAMIDE IV PRN; +DEXAMETHASONE SOD PHOSPHATE 20 MG in NORMAL SALINE 50 ML IV PRN; +DOCETAXEL IV PRN; +FAMOTIDINE/PF 20 MG in NORMAL SALINE 50 ML IV PRN; +NORMAL SALINE IV PRN; +PALONOSETRON 0.25 MG/5 ML SDV IV PRN; -PEGFILGRASTIM INJ 6 MG/0.6 ML DISP.SYRIN SUBCUT PRN
[2018-01-24] MEDS: NORMAL SALINE 500 ML IV PRN ×2 (09:40→10:29)
[2018-01-24] MEDS: DIPHENHYDRAMINE HCL 50 MG/ML VIAL IV PRN ×2 (09:41→10:33)
[2018-01-24 09:43] VITALS: BP 118/61
[2018-01-24] MEDS ORDERED: PALONOSETRON 0.25 MG/5 ML SDV IV PRN (09:45)
== END 2018-01-24 14:07 | disposition home or self-care (01) ==
LOC: II 09:12 → 5TH 09:15 → II 14:07
PROVIDERS: ATTEND Internal Medicine Hematology & Oncology
PROC: 3E04305 Introduction of Other Antineoplastic into Central Vein, Percutaneous Approach (ICD-10-PCS; principal; 2018-01-24)
PROC: 3E0433Z Introduction of Anti-inflammatory into Central Vein, Percutaneous Approach (ICD-10-PCS; 2018-01-24)
PROC: 3E043GC Introduction of Other Therapeutic Substance into Central Vein, Percutaneous Approach (ICD-10-PCS; 2018-01-24)
DX: Z51.11 Encounter for antineoplastic chemotherapy (principal); C50.812 Malignant neoplasm of overlapping sites of left female breast; D70.9 Neutropenia, unspecified
CPT/HCPCS: 96413; 96415; 96367; 96374; 96375; 96360; J9070; J1200; J7050; S0028; J1100; J2469; J9171; 96417

== ENCOUNTER 2018-01-25 13:14 | Outpatient (CLI) | payer OTHER ==
[~2018-01-25 13:14] MED LIST changes: -CYCLOPHOSPHAMIDE IV PRN; -DEXAMETHASONE SOD PHOSPHATE 20 MG in NORMAL SALINE 50 ML IV PRN; -DOCETAXEL IV PRN; -FAMOTIDINE/PF 20 MG in NORMAL SALINE 50 ML IV PRN; -NORMAL SALINE IV PRN; -PALONOSETRON 0.25 MG/5 ML SDV IV PRN; +PEGFILGRASTIM INJ 6 MG/0.6 ML DISP.SYRIN SUBCUT PRN
[2018-01-25 13:54] VITALS: BP 101/62
== END 2018-01-25 13:55 | disposition home or self-care (01) ==
LOC: II 13:14 → 5TH 13:17 → II 13:55
PROVIDERS: ATTEND Internal Medicine Hematology & Oncology
PROC: 3E013GC Introduction of Other Therapeutic Substance into Subcutaneous Tissue, Percutaneous Approach (ICD-10-PCS; principal; 2018-01-25)
DX: Z51.11 Encounter for antineoplastic chemotherapy (principal); C50.812 Malignant neoplasm of overlapping sites of left female breast; D70.9 Neutropenia, unspecified
CPT/HCPCS: 96372; J2505

== ENCOUNTER 2018-02-14 10:51 | Outpatient (CLI) | payer OTHER ==
[~2018-02-14 10:51] MED LIST changes: +CYCLOPHOSPHAMIDE IV PRN; +DEXAMETHASONE SOD PHOSPHATE 20 MG in DEXTROSE 5%-WATER 50 ML IV PRN; +DEXAMETHASONE SOD PHOSPHATE 20 MG in NORMAL SALINE 50 ML IV PRN; +DIPHENHYDRAMINE HCL 50 MG/ML VIAL IV PRN; +DOCETAXEL IV PRN; +FAMOTIDINE/PF 20 MG in NORMAL SALINE 50 ML IV PRN; +NORMAL SALINE IV PRN; +PALONOSETRON 0.25 MG/5 ML SDV IV PRN; -PEGFILGRASTIM INJ 6 MG/0.6 ML DISP.SYRIN SUBCUT PRN
[2018-02-14 11:30] VITALS: BP 121/68
[2018-02-14] MEDS: NORMAL SALINE 500 ML IV PRN ×2 (11:34→12:26)
[2018-02-14] MEDS ORDERED: DEXAMETHASONE SOD PHOSPHATE 20 MG in DEXTROSE 5%-WATER 50 ML IV PRN (12:43)
[2018-02-14] MEDS ORDERED: DEXAMETHASONE SOD PHOSPHATE 20 MG in NORMAL SALINE 50 ML IV PRN (12:51)
== END 2018-02-14 14:50 | disposition home or self-care (01) ==
LOC: II 10:51 → 5TH 10:58 → II 14:50
PROVIDERS: ATTEND Internal Medicine
PROC: 3E04305 Introduction of Other Antineoplastic into Central Vein, Percutaneous Approach (ICD-10-PCS; principal; 2018-02-14)
PROC: 3E0433Z Introduction of Anti-inflammatory into Central Vein, Percutaneous Approach (ICD-10-PCS; 2018-02-14)
PROC: 3E043GC Introduction of Other Therapeutic Substance into Central Vein, Percutaneous Approach (ICD-10-PCS; 2018-02-14)
DX: Z51.11 Encounter for antineoplastic chemotherapy (principal); C50.812 Malignant neoplasm of overlapping sites of left female breast
CPT/HCPCS: 96413; 96367; 96375; 96417; J9070; J1200; J7050; S0028; J1100 ×2; J2469; J9171; 96360; 96374; 96415

== ENCOUNTER 2018-02-15 14:20 | Outpatient (CLI) | payer OTHER ==
[~2018-02-15 14:20] MED LIST changes: -CYCLOPHOSPHAMIDE IV PRN; -DEXAMETHASONE SOD PHOSPHATE 20 MG in DEXTROSE 5%-WATER 50 ML IV PRN; -DEXAMETHASONE SOD PHOSPHATE 20 MG in NORMAL SALINE 50 ML IV PRN; -DIPHENHYDRAMINE HCL 50 MG/ML VIAL IV PRN; -DOCETAXEL IV PRN; -FAMOTIDINE/PF 20 MG in NORMAL SALINE 50 ML IV PRN; -NORMAL SALINE IV PRN; -PALONOSETRON 0.25 MG/5 ML SDV IV PRN; +PEGFILGRASTIM INJ 6 MG/0.6 ML DISP.SYRIN SUBCUT PRN
[2018-02-15 14:40] VITALS: BP 117/62
== END 2018-02-15 14:43 | disposition home or self-care (01) ==
LOC: II 14:20 → 5TH 14:41 → II 14:43
PROVIDERS: ATTEND Internal Medicine
PROC: 3E013GC Introduction of Other Therapeutic Substance into Subcutaneous Tissue, Percutaneous Approach (ICD-10-PCS; principal; 2018-02-15)
DX: Z76.89 Persons encountering health services in other specified circumstances (principal); C50.812 Malignant neoplasm of overlapping sites of left female breast; D70.9 Neutropenia, unspecified
CPT/HCPCS: 96372; J2505

== ENCOUNTER 2018-03-07 09:50 | Outpatient (CLI) | payer OTHER ==
[~2018-03-07 09:50] MED LIST changes: +CYCLOPHOSPHAMIDE IV PRN; +DEXAMETHASONE SOD PHOSPHATE 20 MG in NORMAL SALINE 50 ML IV PRN; +DIPHENHYDRAMINE HCL 50 MG/ML VIAL IV PRN; +DOCETAXEL IV PRN; +FAMOTIDINE/PF 20 MG in NORMAL SALINE 50 ML IV PRN; +NORMAL SALINE 500 ML IV PRN; +NORMAL SALINE IV PRN; +PALONOSETRON 0.25 MG/5 ML SDV IV PRN; -PEGFILGRASTIM INJ 6 MG/0.6 ML DISP.SYRIN SUBCUT PRN
[2018-03-07 10:17] VITALS: BP 129/71
[2018-03-07] MEDS ORDERED: ACETAMINOPHEN 325 MG TABLET ONE (11:38)
== END 2018-03-07 13:29 | disposition home or self-care (01) ==
LOC: II 09:50 → 5TH 09:54 → II 13:29
PROVIDERS: ATTEND Internal Medicine Hematology & Oncology
PROC: 3E04305 Introduction of Other Antineoplastic into Central Vein, Percutaneous Approach (ICD-10-PCS; principal; 2018-03-07)
PROC: 3E0433Z Introduction of Anti-inflammatory into Central Vein, Percutaneous Approach (ICD-10-PCS; 2018-03-07)
PROC: 3E043GC Introduction of Other Therapeutic Substance into Central Vein, Percutaneous Approach (ICD-10-PCS; 2018-03-07)
DX: Z51.11 Encounter for antineoplastic chemotherapy (principal); C50.812 Malignant neoplasm of overlapping sites of left female breast; D70.9 Neutropenia, unspecified
CPT/HCPCS: 96413; 96415; 96367; 96375; 96417; J9070; J1200; J7050; S0028; J1100; J2469; J9171; 96360; 96374

== ENCOUNTER 2018-03-08 12:45 | Outpatient (CLI) | payer OTHER ==
[~2018-03-08 12:45] MED LIST changes: -CYCLOPHOSPHAMIDE IV PRN; -DEXAMETHASONE SOD PHOSPHATE 20 MG in NORMAL SALINE 50 ML IV PRN; -DIPHENHYDRAMINE HCL 50 MG/ML VIAL IV PRN; -DOCETAXEL IV PRN; -FAMOTIDINE/PF 20 MG in NORMAL SALINE 50 ML IV PRN; -NORMAL SALINE 500 ML IV PRN; -NORMAL SALINE IV PRN; -PALONOSETRON 0.25 MG/5 ML SDV IV PRN; +PEGFILGRASTIM INJ 6 MG/0.6 ML DISP.SYRIN SUBCUT PRN
[2018-03-08 13:24] VITALS: BP 128/69
== END 2018-03-08 13:26 | disposition home or self-care (01) ==
LOC: II 12:45 → 5TH 12:47 → II 13:26
PROVIDERS: ATTEND Internal Medicine Hematology & Oncology
PROC: 3E013GC Introduction of Other Therapeutic Substance into Subcutaneous Tissue, Percutaneous Approach (ICD-10-PCS; principal; 2018-03-08)
DX: Z76.89 Persons encountering health services in other specified circumstances (principal); C50.812 Malignant neoplasm of overlapping sites of left female breast; D70.1 Agranulocytosis secondary to cancer chemotherapy
CPT/HCPCS: 96372; J2505

== ENCOUNTER → 2018-03-25 | Outpatient (CLI) | payer OTHER ==
--- NOTE | 2018-03-25 12:32 | RADIOLOGY REPORT (SQ) ---
EXAM DESCRIPTION: VENOUS UNILATERAL UPPER COMPLETED DATE/TIME: 03/25/2018 12:13 pm REASON FOR STUDY: RUE SWELLING R22.1 LOCALIZED SWELLING, MASS AND LUMP, NECK COMPARISON: None. TECHNIQUE: Dynamic and static thorpe scale and color images acquired of the right arm venous system. S elected spectral images acquired with additional compression and augmentation maneuvers. The contrala teral subclavian vein and internal jugular vein were also imaged. Images stored on PACS. LIMITATIONS: None. FINDINGS: INTERNAL JUGULAR VEIN: Occlusive thrombus. SUBCLAVIAN VEIN: Normal compression, augmentation. No visualized echogenic material on thorpe scale. No defects on color images. AXILLARY VEIN: Normal compression, augmentation. No visualized echogenic material on thorpe scale. No d efects on color images. BRACHIAL VEIN: Normal compression, augmentation. No visualized echogenic material on thorpe scale. No d efects on color images. BASILIC VEIN: Normal compression, augmentation. No visualized echogenic material on thorpe scale. No de fects on color images. CEPHALIC VEIN: Normal compression, augmentation. No visualized echogenic material on thorpe scale. No d efects on color images. OTHER: No other significant finding. CONTRALATERAL SUBCLAVIAN VEIN AND INTERNAL JUGULAR VEIN: Normal phasicity, compression and augmentation. No visualized echogenic material on thorpe scale. No de fects on color images. IMPRESSION: Acute deep vein thrombosis internal jugular vein. TECHNICAL DOCUMENTATION: JOB ID: [id number] Infectious- All Rights Reserved Reading location - IP/workstation name: [email or web address]
== END ==
LOC: SP 10:26
PROVIDERS: ATTEND Internal Medicine Hematology & Oncology
DX: R22.1 Localized swelling, mass and lump, neck (principal)
CPT/HCPCS: 93971

== ENCOUNTER 2018-03-28 10:20 | Outpatient (CLI) | payer OTHER ==
[~2018-03-28 10:20] MED LIST changes: +CYCLOPHOSPHAMIDE IV PRN; +DEXAMETHASONE SOD PHOSPHATE 20 MG in NORMAL SALINE 50 ML IV PRN; +DIPHENHYDRAMINE HCL 50 MG/ML VIAL IV PRN; +DOCETAXEL IV PRN; +FAMOTIDINE/PF 20 MG in NORMAL SALINE 50 ML IV PRN; +NORMAL SALINE 500 ML IV PRN; +NORMAL SALINE IV PRN; +PALONOSETRON 0.25 MG/5 ML SDV IV PRN; -PEGFILGRASTIM INJ 6 MG/0.6 ML DISP.SYRIN SUBCUT PRN
[2018-03-28 10:39] VITALS: BP 115/60
== END 2018-03-28 13:59 | disposition home or self-care (01) ==
LOC: II 10:20 → 5TH 10:21 → II 13:59
PROVIDERS: ATTEND Internal Medicine Hematology & Oncology
PROC: 3E04305 Introduction of Other Antineoplastic into Central Vein, Percutaneous Approach (ICD-10-PCS; principal; 2018-03-28)
PROC: 3E0433Z Introduction of Anti-inflammatory into Central Vein, Percutaneous Approach (ICD-10-PCS; 2018-03-28)
PROC: 3E043GC Introduction of Other Therapeutic Substance into Central Vein, Percutaneous Approach (ICD-10-PCS; 2018-03-28)
DX: Z51.11 Encounter for antineoplastic chemotherapy (principal); C50.812 Malignant neoplasm of overlapping sites of left female breast
CPT/HCPCS: 96413; 96415; 96367; 96374; 96375; 96360; J9070; J1200; J7050; S0028; J1100; J2469; J9171; 96361; 96417

== ENCOUNTER 2018-03-29 13:35 | Outpatient (CLI) | payer OTHER ==
[~2018-03-29 13:35] MED LIST changes: -CYCLOPHOSPHAMIDE IV PRN; -DEXAMETHASONE SOD PHOSPHATE 20 MG in NORMAL SALINE 50 ML IV PRN; -DIPHENHYDRAMINE HCL 50 MG/ML VIAL IV PRN; -DOCETAXEL IV PRN; -FAMOTIDINE/PF 20 MG in NORMAL SALINE 50 ML IV PRN; -NORMAL SALINE 500 ML IV PRN; -NORMAL SALINE IV PRN; -PALONOSETRON 0.25 MG/5 ML SDV IV PRN; +PEGFILGRASTIM INJ 6 MG/0.6 ML DISP.SYRIN SUBCUT PRN
[2018-03-29 14:03] VITALS: BP 116/51
== END 2018-03-29 14:03 | disposition home or self-care (01) ==
LOC: II 13:35
PROVIDERS: ATTEND Internal Medicine Hematology & Oncology
PROC: 3E013GC Introduction of Other Therapeutic Substance into Subcutaneous Tissue, Percutaneous Approach (ICD-10-PCS; principal; 2018-03-29)
DX: Z76.89 Persons encountering health services in other specified circumstances (principal); C50.812 Malignant neoplasm of overlapping sites of left female breast
CPT/HCPCS: 96372; J2505

== ENCOUNTER 2018-04-23 09:33 | Outpatient (CLI) | payer OTHER ==
[~2018-04-23 09:33] MED LIST changes: +CYCLOPHOSPHAMIDE IV PRN; +DEXAMETHASONE SOD PHOSPHATE 20 MG in NORMAL SALINE 50 ML IV PRN; +DIPHENHYDRAMINE HCL 50 MG/ML VIAL IV PRN; +DOCETAXEL IV PRN; +FAMOTIDINE/PF 20 MG in NORMAL SALINE 50 ML IV PRN; +NORMAL SALINE 500 ML IV PRN; +NORMAL SALINE IV PRN; +PALONOSETRON 0.25 MG/5 ML SDV IV PRN; -PEGFILGRASTIM INJ 6 MG/0.6 ML DISP.SYRIN SUBCUT PRN
[2018-04-23 09:58] VITALS: BP 107/66
== END 2018-04-23 14:24 | disposition home or self-care (01) ==
LOC: II 09:33 → 5TH 09:47 → II 14:24
PROVIDERS: ATTEND Internal Medicine Hematology & Oncology
PROC: 3E04305 Introduction of Other Antineoplastic into Central Vein, Percutaneous Approach (ICD-10-PCS; principal; 2018-04-23)
PROC: 3E0433Z Introduction of Anti-inflammatory into Central Vein, Percutaneous Approach (ICD-10-PCS; 2018-04-23)
PROC: 3E043GC Introduction of Other Therapeutic Substance into Central Vein, Percutaneous Approach (ICD-10-PCS; 2018-04-23)
DX: Z51.11 Encounter for antineoplastic chemotherapy (principal); C50.812 Malignant neoplasm of overlapping sites of left female breast
CPT/HCPCS: 96413; 96415; 96367; 96374; 96375; 96360; J9070; J1200; J7050; S0028; J1100; J2469; J9171; 96417

== ENCOUNTER 2018-04-24 13:03 | Outpatient (CLI) | payer OTHER ==
[~2018-04-24 13:03] MED LIST changes: -CYCLOPHOSPHAMIDE IV PRN; -DEXAMETHASONE SOD PHOSPHATE 20 MG in NORMAL SALINE 50 ML IV PRN; -DIPHENHYDRAMINE HCL 50 MG/ML VIAL IV PRN; -DOCETAXEL IV PRN; -FAMOTIDINE/PF 20 MG in NORMAL SALINE 50 ML IV PRN; -NORMAL SALINE 500 ML IV PRN; -NORMAL SALINE IV PRN; -PALONOSETRON 0.25 MG/5 ML SDV IV PRN; +PEGFILGRASTIM INJ 6 MG/0.6 ML DISP.SYRIN SUBCUT PRN
[2018-04-24 13:20] VITALS: BP 101/59
== END 2018-04-24 13:31 | disposition home or self-care (01) ==
LOC: II 13:03 → 5TH 13:09 → II 13:31
PROVIDERS: ATTEND Internal Medicine Hematology & Oncology
PROC: 3E013GC Introduction of Other Therapeutic Substance into Subcutaneous Tissue, Percutaneous Approach (ICD-10-PCS; principal; 2018-04-24)
DX: Z76.89 Persons encountering health services in other specified circumstances (principal); C50.812 Malignant neoplasm of overlapping sites of left female breast; D70.2 Other drug-induced agranulocytosis
CPT/HCPCS: 96372; J2505

== ENCOUNTER → 2018-08-20 | Outpatient (CLI) | payer OTHER ==
[2018-08-20 12:58] LABS: ABSOLUTE BASOPHILS # (AUTO) 0.1 10^3/uL (0.0-0.2); ABSOLUTE EOSINOPHILS # (AUTO) 0.3 10^3/uL (0.0-0.6); ABSOLUTE LYMPHOCYTES (AUTO) 1.7 10^3/uL (0.5-4.7); ABSOLUTE MONOCYTES (AUTO) 0.4 10^3/uL (0.1-1.4); EOSINOPHILS % (AUTO) 3.5 % (0-6); HEMATOCRIT 38.6 % (36.0-47.0); HEMOGLOBIN 12.9 g/dL (12.0-15.5); LYMPHOCYTES % (AUTO) 22.6 % (13-45); MEAN CORPUSCULAR HEMOGLOBIN 27.4 pg (27.0-33.4); MEAN CORPUSCULAR HGB CONC 33.5 g/dL (32.0-36.0); MEAN CORPUSCULAR VOLUME 82 fl (80-97); MONOCYTES % (AUTO) 5.7 % (3-13); PLATELET COUNT 251 10^3/uL (150-450); RED BLOOD COUNT 4.73 10^6/uL (3.72-5.28); RED CELL DISTRIBUTION WIDTH 15.7 % (11.5-14.0); SEGMENTED NEUTROPHILS % (AUTO) 67.2 % (42-78); TOTAL CELLS COUNTED % (AUTO) 100 %; WHITE BLOOD COUNT 7.5 10^3/uL (4.0-10.5)
== END ==
LOC: OD 11:56
PROVIDERS: ATTEND Radiology Radiation Oncology
DX: C50.412 Malignant neoplasm of upper-outer quadrant of left female breast (principal)
CPT/HCPCS: 36415; 84702; 85025

== ENCOUNTER → 2019-04-11 | Outpatient (CLI) | payer OTHER ==
[2019-04-11 11:40] LABS: BACTERIA (WET MOUNT) 3+ BACTERIA SEEN; EPITHELIALS (WET MOUNT) 4+ EPITHELIALS SEEN; RBCS (WET MOUNT) FEW RBCS SEEN; T.VAGINALIS (WET MOUNT) NO TRICHOMONAS SEEN; WBCS (WET MOUNT) 2+ WBCS SEEN; YEAST (WET MOUNT) NO YEAST SEEN
[2019-04-11 11:45] LABS: APPEARANCE,URINE SLIGHTLY-CLOUDY; BILIRUBIN,URINE NEGATIVE (NEGATIVE); COLOR,URINE YELLOW; GLUCOSE, URINE 50 mg/dL (NEGATIVE); KETONES,URINE NEGATIVE (NEGATIVE); LEUKOCYTE ESTERASE,URINE MODERATE (NEGATIVE); NITRITE,URINE NEGATIVE (NEGATIVE); PROTEIN,URINE NEGATIVE (NEGATIVE); URINE SPECIFIC GRAVITY 1.023; UROBILINOGEN,URINE NEGATIVE mg/dL (<2.0)
[2019-04-11 13:11] LABS: CHLAM PCR NOT DETECTED (NOT DETECT)
== END ==
LOC: LAB 11:22
PROVIDERS: ATTEND Nurse Practitioner Family
DX: R30.0 Dysuria (principal)
CPT/HCPCS: 81001; 87086; 87210; 87491; 87591

== ENCOUNTER 2019-07-01 19:20 | Emergency (ER) | payer OTHER ==
--- NOTE | 2019-07-01 21:11 | ER Document Report ---
ED Medical Screen (RME) - General Chief Complaint: Abdominal Pain Stated Complaint: PAINFUL URINATION Time Seen by Provider: 07/01/19 21:05 Primary Care Provider: ALEK BRADLEY NP [Primary Care Provider] - Follow up as needed Notes: 33-year-old female presents to the emergency department with suprapubic and bilateral adnexal pain. Patient was seen in urgent care yesterday but the pain is persisted and she sought care here today. No fevers or chills, no nausea or vomiting, no abnormal vaginal discharge or urinary symptoms. Exam: Well-appearing no acute distress, lungs clear to auscultation, regular cardiac rate and rhythm, abdominal exam deferred in triage I have greeted and performed a rapid initial assessment of this patient. A comprehensive ED assessment and evaluation of the patient, analysis of test results and completion of medical decision making process will be conducted by an additional ED providers. TRAVEL OUTSIDE OF THE [place] IN LAST 30 DAYS: No - Related Data Allergies/Adverse Reactions: No Known Allergies Allergy (Verified 10/30/17 12:26) Home Medications: zoloft, abilify, metformin, tamoxifan Past Medical History - Social History Chew tobacco use (# tins/day): No Frequency of alcohol use: None Drug Abuse: None - Past Medical History Cardiac Medical History: Denies: Hx Coronary Artery Disease, Hx Heart Attack, Hx Hypertension Pulmonary Medical History: Denies: Hx Asthma, Hx Bronchitis, Hx COPD, Hx Pneumonia Neurological Medical History: Denies: Hx Cerebrovascular Accident, Hx Seizures Endocrine Medical History: Denies: Hx Hyperthyroidism, Hx Hypothyroidism Renal/ Medical History: Denies: Hx Peritoneal Dialysis Malignancy Medical History: Reports: Hx Breast Cancer - PRESENTLY ON CHEMOTx Musculoskeltal Medical History: Denies Hx Arthritis Psychiatric Medical History: Reports: Hx Depression Denies: Hx Bipolar Disorder, Hx Post Traumatic Stress Disorder, Hx Schizophrenia - Immunizations Hx Diphtheria, Pertussis, Tetanus Vaccination: Yes Physical Exam - Vital signs Vitals: Temp Pulse Resp BP Pulse Ox 98.1 F 84 20 137/63 H 96 07/01/19 20:01 07/01/19 20:01 07/01/19 20:01 07/01/19 20:01 07/01/19 20:01 Course - Vital Signs Vital signs: Temp Pulse Resp BP Pulse Ox 98.1 F 84 20 137/63 H 96 07/01/19 20:48 07/01/19 20:48 07/01/19 20:48 07/01/19 20:48 07/01/19 20:48 Doctor's Discharge - Discharge Referrals: ALEK BRADLEY, OPTIMIZATION MANAGER [Primary Care Provider] - Follow up as needed
[2019-07-01 21:20] LABS: APPEARANCE,URINE CLEAR; BILIRUBIN,URINE NEGATIVE (NEGATIVE); COLOR,URINE YELLOW; GLUCOSE, URINE NEGATIVE (NEGATIVE); KETONES,URINE NEGATIVE (NEGATIVE); PROTEIN,URINE NEGATIVE (NEGATIVE); URINE SPECIFIC GRAVITY 1.021; UROBILINOGEN,URINE NEGATIVE mg/dL (<2.0)
[2019-07-01 22:05] LABS: ABSOLUTE BASOPHILS # (AUTO) 0.1 10^3/uL (0.0-0.2); ABSOLUTE EOSINOPHILS # (AUTO) 0.2 10^3/uL (0.0-0.6); ABSOLUTE LYMPHOCYTES (AUTO) 1.9 10^3/uL (0.5-4.7); ABSOLUTE MONOCYTES (AUTO) 0.7 10^3/uL (0.1-1.4); ABSOLUTE NEUT (AUTO) 5.3 10^3/uL (1.7-8.2); BASOPHILS % (AUTO) 0.8 % (0-2); HEMATOCRIT 39.9 % (36.0-47.0); HEMOGLOBIN 13.3 g/dL (12.0-15.5); LYMPHOCYTES % (AUTO) 23.3 % (13-45); MEAN CORPUSCULAR HEMOGLOBIN 29.2 pg (27.0-33.4); MEAN CORPUSCULAR HGB CONC 33.3 g/dL (32.0-36.0); MEAN CORPUSCULAR VOLUME 88 fl (80-97); MONOCYTES % (AUTO) 8.1 % (3-13); PLATELET COUNT 227 10^3/uL (150-450); RED BLOOD COUNT 4.56 10^6/uL (3.72-5.28); RED CELL DISTRIBUTION WIDTH 13.9 % (11.5-14.0); SEGMENTED NEUTROPHILS % (AUTO) 64.8 % (42-78); TOTAL CELLS COUNTED % (AUTO) 100 %; WHITE BLOOD COUNT 8.2 10^3/uL (4.0-10.5)
[2019-07-01 22:18] LABS: ALBUMIN 4.5 g/dL (3.5-5.0); ALKALINE PHOSPHATASE 98 U/L (38-126); ANION GAP 11 (5-19); ASPARTATE AMINO TRANSFERASE 37 U/L (14-36); BILIRUBIN,DIRECT 0.1 mg/dL (0.0-0.4); BILIRUBIN,TOTAL 0.3 mg/dL (0.2-1.3); BLOOD UREA NITROGEN 17 mg/dL (7-20); CALCIUM 10.1 mg/dL (8.4-10.2); CARBON DIOXIDE 28 mmol/L (22-30); CHLORIDE 101 mmol/L (98-107); GLUCOSE 114 mg/dL (75-110); TOTAL PROTEIN 7.9 g/dL (6.3-8.2)
--- NOTE | 2019-07-01 22:28 | RADIOLOGY REPORT (SQ) ---
US PELVIS EXAM DATE: 07/01/2019 9:09 PM FACTORY MAINTENANCE TECHNICIAN HISTORY: Pelvic pain. COMPARISON: None. TECHNIQUE: Grayscale, color Doppler, and spectral Doppler ultrasound images of the pelvis were obtained. FINDINGS: The uterus is anteverted and measures 9.3 x 5.2 x 5.6 cm. There is a 5.2 cm intramural fibroid. The endometrium is 6 mm in thickness. Nabothian cysts are seen in the cervix. The right ovary measures 4.3 cm and contains a 2 cm simple cyst and a 1.6 cm mildly complex cyst. The left ovary measures 3.3 cm. Normal color Doppler blood flow is seen in both ovaries. No pelvic free fluid. IMPRESSION: 1. 5 cm uterine fibroid. 2. Multiple ovarian cysts: 4.3 cm simple ovarian cyst; 2.0 cm simple ovarian cyst. Most severe: 4.3 cm simple ovarian cyst. No follow-up imaging is recommended. Reference: Radiology 2010 Mar;256(3):945-51
[2019-07-02] MEDS ORDERED: ONDANSETRON ODT 4 MG TAB (6 TAB/ER DISP) PO PRN (00:25)
[2019-07-02] MEDS ORDERED: HYDROCODONE/ACETAMINOPHEN 5-325 MG (6 TAB/ER DISP) PO PRN (00:25)
--- NOTE | 2019-07-02 00:25 | ER Document Report ---
ED GI/ - General Chief Complaint: Abdominal Pain Stated Complaint: PAINFUL URINATION Time Seen by Provider: 07/01/19 21:05 Primary Care Provider: [facility] [Provider Group] - Follow up as needed Mode of Arrival: Ambulatory Information source: Patient Notes: 33-year-old female presents to the emergency department with suprapubic and bilateral adnexal pain. Patient was seen in urgent care yesterday but the pain is persisted and she sought care here today. No fevers or chills, no nausea or vomiting, no abnormal vaginal discharge or urinary symptoms. TRAVEL OUTSIDE OF THE [place] IN LAST 30 DAYS: No - Related Data Allergies/Adverse Reactions: No Known Allergies Allergy (Verified 10/30/17 12:26) Home Medications: zoloft, abilify, metformin, tamoxifan Past Medical History - General Information source: Patient - Social History Smoking Status: Never Smoker Chew tobacco use (# tins/day): No Frequency of alcohol use: None Drug Abuse: None Family History: Reviewed & Not Pertinent Patient has suicidal ideation: No Patient has homicidal ideation: No - Past Medical History Cardiac Medical History: Denies: Hx Coronary Artery Disease, Hx Heart Attack, Hx Hypertension Pulmonary Medical History: Denies: Hx Asthma, Hx Bronchitis, Hx COPD, Hx Pneumonia Neurological Medical History: Denies: Hx Cerebrovascular Accident, Hx Seizures Endocrine Medical History: Denies: Hx Hyperthyroidism, Hx Hypothyroidism Renal/ Medical History: Denies: Hx Peritoneal Dialysis Malignancy Medical History: Reports: Hx Breast Cancer - PRESENTLY ON CHEMOTx Musculoskeletal Medical History: Denies Hx Arthritis Psychiatric Medical History: Reports: Hx Depression Denies: Hx Bipolar Disorder, Hx Post Traumatic Stress Disorder, Hx Schizophrenia Surgical Hx: Negative - Immunizations Hx Diphtheria, Pertussis, Tetanus Vaccination: Yes Review of Systems - Review of Systems Constitutional: No symptoms reported EENT: No symptoms reported Cardiovascular: No symptoms reported Respiratory: No symptoms reported Gastrointestinal: No symptoms reported Genitourinary: No symptoms reported Female Genitourinary: See HPI Musculoskeletal: No symptoms reported Skin: No symptoms reported Hematologic/Lymphatic: No symptoms reported Neurological/Psychological: No symptoms reported Physical Exam - Vital signs Vitals: Temp Pulse Resp BP Pulse Ox 98.1 F 82 20 137/63 H 96 07/01/19 19:53 07/01/19 19:53 07/01/19 19:53 07/01/19 19:53 07/01/19 19:53 - Notes Notes: PHYSICAL EXAMINATION: GENERAL: Well-appearing, well-nourished and in no acute distress. HEAD: Atraumatic, normocephalic. EYES: Pupils equal round and reactive to light, extraocular movements intact, conjunctiva are normal. ENT: Nares patent, oropharynx clear without exudates. Moist mucous membranes. NECK: Normal range of motion, supple without lymphadenopathy LUNGS: Breath sounds clear to auscultation bilaterally and equal. No wheezes rales or rhonchi. HEART: Regular rate and rhythm without murmurs ABDOMEN: Soft, nondistended abdomen. Mild lower abdominal tenderness with palpation. No guarding, no rebound. No masses appreciated. Female : No CVA tenderness. Musculoskeletal: Normal range of motion, no pitting or edema. No cyanosis. NEUROLOGICAL: Cranial nerves grossly intact. Normal speech, normal gait. Norm al sensory, motor exams PSYCH: Normal mood, normal affect. SKIN: Warm, Dry, normal turgor, no rashes or lesions noted. Course - Re-evaluation Re-evalutation: Laboratory 07/01/19 07/01/19 07/01/19 19:29 19:29 21:50 WBC 8.2 RBC 4.56 Hgb 13.3 Hct 39.9 MCV 88 MCH 29.2 MCHC 33.3 RDW 13.9 Plt Count 227 Lymph % (Auto) 23.3 [place] % (Auto) 8.1 Eos % (Auto) 3.0 Baso % (Auto) 0.8 Absolute Neuts (auto) 5.3 Absolute Lymphs (auto) 1.9 Absolute Monos (auto) 0.7 Absolute Eos (auto) 0.2 Absolute Basos (auto) 0.1 Seg Neutrophils % 64.8 Sodium Potassium Chloride Carbon Dioxide Anion Gap BUN Creatinine Est GFR ( Amer) Est GFR (MDRD) Non-Af Glucose Calcium Total Bilirubin Direct Bilirubin Neonat Total Bilirubin Neonat Direct Bilirubin Neonat Indirect Bili AST ALT Alkaline Phosphatase Total Protein Albumin Urine Color YELLOW Urine Appearance CLEAR Urine pH 5.0 Ur Specific [place] 1.021 Urine Protein NEGATIVE Urine Glucose (UA) NEGATIVE Urine Ketones NEGATIVE Urine Blood NEGATIVE Urine Nitrite (Reflex) NEGATIVE Urine Bilirubin NEGATIVE Urine Urobilinogen NEGATIVE Leukocyte Esterase Rfl NEGATIVE Urine RBC (Auto) 0 Urine WBC (Reflex) < 1 Squamous Epi Cells Auto <1 Urine Mucus (Auto) RARE Urine Ascorbic Acid NEGATIVE Urine HCG, Qual NEGATIVE 07/01/19 21:50 WBC RBC Hgb Hct MCV MCH MCHC RDW Plt Count Lymph % (Auto) [place] % (Auto) Eos % (Auto) Baso % (Auto) Absolute Neuts (auto) Absolute Lymphs (auto) Absolute Monos (auto) Absolute Eos (auto) Absolute Basos (auto) Seg Neutrophils % Sodium 139.6 Potassium 4.0 Chloride 101 Carbon Dioxide 28 Anion Gap 11 BUN 17 Creatinine 0.68 Est GFR ( Amer) > 60 Est GFR (MDRD) Non-Af > 60 Glucose 114 H Calcium 10.1 Total Bilirubin 0.3 Direct Bilirubin 0.1 Neonat Total Bilirubin Not Reportable Neonat Direct Bilirubin Not Reportable Neonat Indirect Bili Not Reportable AST 37 H ALT 31 Alkaline Phosphatase 98 Total Protein 7.9 Albumin 4.5 Urine Color Urine Appearance Urine pH Ur Specific [place] Urine Protein Urine Glucose (UA) Urine Ketones Urine Blood Urine Nitrite (Reflex) Urine Bilirubin Urine Urobilinogen Leukocyte Esterase Rfl Urine RBC (Auto) Urine WBC (Reflex) Squamous Epi Cells Auto Urine Mucus (Auto) Urine Ascorbic Acid Urine HCG, Qual Transvaginal US 07/01/19 21:09 IMPRESSION: 1. 5 cm uterine fibroid. 2. Multiple ovarian cysts: 4.3 cm simple ovarian cyst; 2.0 cm simple ovarian cyst. Most severe: 4.3 cm simple ovarian cyst. No follow-up imaging is recommended. Reference: Radiology 2010 Mar;256(3):943-54 Patient appears well, nontoxic, vital signs within normal limits. Laboratory studies unremarkable. Transvaginal ultrasound shows a 5 cm uterine fibroid as well as multiple ovarian cyst. Patient has not any fever, nausea, vomiting or diarrhea. Patient stable for discharge home. ED return precautions were d iscussed, patient verbalized understanding and agreement with same. The patient's emergency department workup and current diagnosis were explained to the patient and or family. Follow-up instructions were provided. Medications if prescribed were discussed. Instructions for when to return to the emergency department including specific worrisome symptoms were discussed with the patient and/or family. - Vital Signs Vital signs: Temp Pulse Resp BP Pulse Ox 98.2 F 76 20 133/47 H 97 07/02/19 01:19 07/02/19 01:19 07/02/19 01:19 07/02/19 01:19 07/02/19 01:19 - Laboratory Result Diagrams: 07/01/19 21:50 07/01/19 21:50 Laboratory results interpreted by me: 07/01/19 21:50 Glucose 114 H AST 37 H Discharge - Discharge Clinical Impression: Ovarian cyst Qualifiers: Laterality: unspecified laterality Qualified Code(s): N83.209 - Unspecified ovarian cyst, unspecified side Uterine fibroid Qualifiers: Uterine leiomyoma location: unspecified location Qualified Code(s): D25.9 - Leiomyoma of uterus, unspecified Condition: Stable Disposition: HOME, SELF-CARE Additional Instructions: Your work-up today shows that you have a uterine fibroid and multiple ovarian cysts. Please follow-up with PHOTOGRA[employer]URE PRESS OPERATOR. Take ibuprofen 600 mg every 6 hours for pain. Use the narcotic pain medication that was sent home with you for severe pain only. Take nausea medicine as needed. Call tomorrow to schedule an appointment with PHOTOGRAVURE PRESS OPERATOR. Return to the emergency department any new or worsening symptoms. Forms: Return to Work Referrals: [facility] [Provider Group] - Follow up as needed
[2019-07-02 01:14] VITALS: BP 133/47
== END 2019-07-02 01:19 | disposition home or self-care (01) ==
LOC: ER 19:20
DX: N83.209 Unspecified ovarian cyst, unspecified side (principal); D25.9 Leiomyoma of uterus, unspecified; R10.9 Unspecified abdominal pain; R30.0 Dysuria; Z79.84 Long term (current) use of oral hypoglycemic drugs
CPT/HCPCS: 36415; 76830; 80053; 81001; 81025; 85025; 93976; 99284